=== PATIENT | female | born 1990 ===

== ENCOUNTER 2017-11-15 20:26 | Inpatient (IN) | payer BC ==
[2017-11-15 21:16] VITALS: BMI 36.9
[2017-11-15] MEDS ORDERED: Lactated Ringer's 1,000 ML IV SCH ×2 (21:30)
[2017-11-15 21:50] LABS: BASO % 0.5 % (0.0-2.0); EOS # 0.1 K/uL (0.0-0.7); EOS % 0.8 % (0.0-4.0); HEMOGLOBIN 14.5 g/dL (12.0-16.0); LYMPH # 1.9 K/uL (1.0-4.3); LYMPH % 20.1 % (20.0-40.0); MEAN CELL VOLUME 92.5 fl (81.0-99.0); MEAN CORPUSCULAR HEMOGLOBIN 32.4 pg (27.0-31.0); MEAN PLATELET VOLUME 8.4 fl (7.2-11.7); MONO # 0.8 K/uL (0.0-0.8); MONO % 8.8 % (0.0-10.0); NEUT # 6.4 K/uL (1.8-7.0); NEUT % 69.8 % (50.0-75.0); NRBC % 0.1 % (0.0-0.0); RBC 4.48 Mil/uL (3.80-5.20); RED CELL DISTRIBUTION WIDTH 13.7 % (11.5-14.5); WHITE BLOOD COUNT 9.2 K/uL (4.8-10.8)
[2017-11-16] MEDS ORDERED: Oxytocin 30 units/LR 500ML 30 U/500 ML BAG IV ONE (04:14)
[2017-11-16] MEDS ORDERED: Lidocaine 2% Inj (20ml) ONE ×2 (04:22→04:25)
[2017-11-16] MEDS ORDERED: Benzocaine/Menthol SPRAY TOP PRN (04:49)
[2017-11-16] MEDS ORDERED: Oxycodone/Acetaminophen 5/325 mg Tab PO PRN (04:49)
--- NOTE | 2017-11-16 04:52 | OBDS ---
MATERNAL INFORMATION Provider Comments: Delivered live baby girl at 4:24 AM the baby was bulb suctioned on the perineum a nd transferred to the maternal chest. The cord was clamped and cut 3 vessels noted, cord blood was ob tained and sent to the lab. The placenta was delivered at 4:28 AM intact, the estimated blood loss wa s 150 mL. There was a second-degree laceration was repaired with 2-0 Rapide. The mother tolerated the procedure well the baby went to the well baby nursery with Apgars of 9 and 9 weighing 3900 g LABOR SUMMARY EDC: 11/15/2017 00:00 No. Babies in Womb: 1 LABOR INFORMATION Cervical Ripening Agents: Cytotec @ [facility] [place] Group B Beta Strep: Negative MEMBRANES Membranes Rupture Method: Spontaneous Rupture of Membranes: 11/15/2017 19:20 Amniotic Fluid Color: Clear Amniotic Fluid Amount: Moderate Amniotic Fluid Odor: Normal
[2017-11-17 06:57] LABS: HEMOGLOBIN 13.6 g/dL (12.0-16.0); MEAN CELL VOLUME 94.5 fl (81.0-99.0); MEAN CORPUSCULAR HEMOGLOBIN 31.9 pg (27.0-31.0); MEAN CORPUSCULAR HGB CONC 33.8 g/dL (33.0-37.0); RBC 4.28 Mil/uL (3.80-5.20); RED CELL DISTRIBUTION WIDTH 13.8 % (11.5-14.5); WHITE BLOOD COUNT 13.4 K/uL (4.8-10.8)
--- NOTE | 2017-11-17 08:41 | OBPPN ---
Datetime: 11/17/2017 08:36 PP Pain Prov: Within normal limits PP Abdomen/Uterus Prov: Normal PP Lochia Prov: Normal PP Progress Prov: Normal PP Impression Prov: Normal progression PP Plan Prov: Continue present management PP Progress Note Prov: PPD 1 s/p , doing well, breast feeding Continue current managment Vital Signs Provider PP: Reviewed; Within Normal Limits
--- NOTE | 2017-11-18 09:29 | OBPPN ---
Datetime: 11/18/2017 09:27 PP Pain Prov: Within normal limits PP Nausea Prov: Denies PP Flatus Prov: Yes PP Breasts Prov: Normal PP Heart Prov: Normal PP Lungs Prov: Normal PP Abdomen/Uterus Prov: Normal PP Lochia Prov: Normal PP Vulva/Perineum Prov: Normal PP CVA Tenderness Prov: Normal PP Extremities Prov: Normal PP Comments Phys Exam Prov: Abd: Soft, NT, Bs -present UT - Firm PP Impression Prov: Normal progression PP Plan Prov: Discharge PP Progress Note Prov: S/P , PPD#2, Clinically Stable. Plan: Discharge. Vital Signs Provider PP: Reviewed
--- NOTE | 2017-11-18 09:44 | OBDCSUM ---
Datetime: 11/18/2017 09:40 Discharged to, Provider: Home Follow up at, Provider: Dr Murray Disch Instr Activity: Normal activity Disch Instr Diet: Regular Discharge Instructions, Provider: Routine instructions given Discharge Diagnosis, Provider: Term Delivered Discharge Time: 11/18/2017 09:41 Follow up in weeks, Provider: 4-6 weeks Disch Referrals: None Contraception discussed, Prov: Yes Discharge Comment, Provider: S/P Uncomplicated , clinically Stable Discharge Diagnosis Prov Other: S/P Uncomplicated , clinically Stable
[2017-11-18] MEDS ORDERED: Oxycodone/Acetaminophen 5/325 mg Tab PO PRN (11:11)
[2017-11-18] MEDS ORDERED: Benzocaine/Menthol SPRAY TOP PRN (11:11)
[2017-11-18 20:33] VITALS: BP 123/67; PULSE 77; RESP 20; TEMP 98.3; O2SAT 100
== END 2017-11-18 12:10 | disposition home or self-care (01) | DRG 775 ==
LOC: H.EROB2 20:26 → H.L&D 21:21 → H.OB/GYN 11-16 08:15
PROVIDERS: ADMIT Obstetrics & Gynecology Gynecology; ATTEND Obstetrics & Gynecology Gynecology
PROC: 4A1HXCZ Monitoring of Products of Conception, Cardiac Rate, External Approach (ICD-10-PCS; 2017-11-15)
PROC: 10E0XZZ Delivery of Products of Conception, External Approach (ICD-10-PCS; principal; 2017-11-16)
PROC: 0KQM0ZZ Repair Perineum Muscle, Open Approach (ICD-10-PCS; 2017-11-16)
DX: O70.1 Second degree perineal laceration during delivery (principal); Z37.0 Single live birth; Z3A.40 40 weeks gestation of pregnancy